=== PATIENT | male | born 1955 | race Two or more races ===

== ENCOUNTER 2022-03-25 15:14 | Emergency (ER) | payer OTHER ==
[~2022-03-25] VITALS: Ht 165.1 cm; Wt 84.8 kg
[2022-03-25] MEDS ORDERED: MORPHINE SULFATE 4 MG/ML SYR/VIAL IV ONE (15:45)
[2022-03-25] MEDS ORDERED: SODIUM CHLORIDE 0.9% 1,000 ML IVB ONE (15:45)
[2022-03-25] MEDS ORDERED: ONDANSETRON HCL 4 MG/2 ML VIAL IV ONE (15:45)
[2022-03-25 16:35] LABS: Basophils # (auto) 0 10 ^3/uL (0-0.2); Basophils % (auto) 0.4 % (0.0-2.0); Eosinophils # (auto) 0.1 10 ^3/uL (0-0.8); Eosinophils % (auto) 0.8 % (0.0-7.0); Hematocrit 46.9 % (41.0-53.0); Hemoglobin 15.3 g/dL (13.5-17.5); Lymphocytes # (auto) 2.7 10 ^3/uL (0.4-5.4); Lymphocytes % (auto) 38.9 % (10.0-50.0); Mean Corpuscular Hemoglobin 29.5 pg (28.0-32.0); Mean Corpuscular Hgb Conc. 32.7 g/dL (32.0-36.0); Mean Corpuscular Volume 90.4 fL (80.0-100.0); Monocytes # (auto) 0.5 10 ^3/uL (0-1.3); Monocytes % (auto) 7.5 % (0.0-12.0); Neutrophils # (auto) 3.6 10 ^3/uL (1.6-8.6); Neutrophils % (auto) 52.4 % (37.0-80.0); Nucleated Red Blood Cells % 0.1 %; Red Blood Cells 5.19 10^6/uL (4.5-5.90); Red Cell Distribution Width 12.5 % (11.8-14.3); White Blood Cell 6.8 10^3/uL (4.4-10.8)
[2022-03-25] MEDS ORDERED: PANT40TA2 PO (16:35)
[2022-03-25 16:53] LABS: Albumin 3.9 g/dL (3.4-5.0); Calcium 8.8 mg/dL (8.5-10.1); Potassium 4.4 mmol/L (3.5-5.1)
[2022-03-25 16:56] LABS: BUN/Creatinine Ratio 24.4; Bilirubin, Total 0.4 mg/dL (0.2-1.0); Total Protein 8.2 g/dL (6.4-8.2)
[2022-03-25 18:20] VITALS: BP 108/70
== END 2022-03-25 18:03 | disposition home or self-care (01) ==
LOC: ER 15:14
DX: K29.70 Gastritis, unspecified, without bleeding (principal); I10 Essential (primary) hypertension; E11.9 Type 2 diabetes mellitus without complications; F17.210 Nicotine dependence, cigarettes, uncomplicated; Z79.899 Other long term (current) drug therapy
CPT/HCPCS: 36415; 74176; 80053; 82962; 83690; 84484; 85025; 93005